=== PATIENT | female | born 1975 | race Caucasian/White ===

== ENCOUNTER 2017-07-16 13:24 | Inpatient (IN) | payer OTHER ==
[2017-07-16 15:40] LABS: ADD MAN DIFF? NO
[2017-07-16 15:43] LABS: BASOPHILS % 0.3 % (0.0-2.0); EOSINOPHILS # 0.1 10^3/ul (0.0-0.5); EOSINOPHILS % 0.6 % (0.0-7.0); HEMOGLOBIN 10.8 g/dl (12.0-16.0); LYMPHOCYTES # 2.6 10^3/ul (0.8-2.9); LYMPHOCYTES % 25.2 % (15.0-51.0); MEAN CORPUSCULAR HGB CONC 33.8 g/dl (32.0-37.0); MEAN PLATELET VOLUME 10.1 fl (7.4-10.4); MONOCYTE # 0.5 10^3/ul (0.3-0.9); MONOCYTES % 5.2 % (0.0-11.0); NEUTROPHILS % 68.1 % (39.0-77.0); PLATELET COUNT 286 10^3/UL (140-415); RED BLOOD COUNT 3.72 10^6/ul (4.20-5.40); RED CELL DISTRIBUTION WIDTH 12.8 % (11.5-14.5)
[2017-07-16 15:43] LABS: WHITE BLOOD COUNT 10.3 10^3/ul (4.8-10.8)
[2017-07-16 16:03] LABS: URIC ACID 3.6 mg/dl (3.1-7.9)
[2017-07-16 16:04] LABS: ALANINE AMINOTRANSFERASE 41 IU/L (13-69); ALBUMIN 3.8 g/dl (3.3-4.9); ALBUMIN/GLOBULIN RATIO 1.11; ALKALINE PHOSPHATASE 113 IU/L (42-121); ANION GAP 14 (8-16); ASPARTATE AMINO TRANSFERASE 33 IU/L (15-46); BILIRUBIN,INDIRECT 0.3 mg/dl (0-1.1); BILIRUBIN,TOTAL 0.3 mg/dl (0.2-1.3); BLOOD UREA NITROGEN 9 mg/dl (7-20); CALCIUM 8.6 mg/dl (8.4-10.2); CARBON DIOXIDE 22 mmol/L (21-31); CHLORIDE 105 mmol/L (97-110); CREATININE 0.37 mg/dl (0.44-1.00); GLUCOSE 82 mg/dl (70-220); INR 0.97; PARTIAL THROMBOPLASTIN TIME 29.1 Sec (25.0-35.0); POTASSIUM 3.7 mmol/L (3.5-5.1); SODIUM 137 mmol/L (135-144); TOTAL PROTEIN 7.2 g/dl (6.1-8.1)
[2017-07-16 16:40] LABS: ADD UMIC NO; UR AMORPHOUS CRYSTAL FEW /HPF (NONE SEEN); UR ASCORBIC ACID NEGATIVE (NEGATIVE); UR BILIRUBIN (Dip) NEGATIVE (NEGATIVE); UR BLOOD (Dip) NEGATIVE (NEGATIVE); UR CLARITY SLIGHTLY CLOUDY (CLEAR); UR COLOR STRAW (YELLOW); UR GLUCOSE (Dip) NEGATIVE (NEGATIVE); UR KETONES (Dip) NEGATIVE (NEGATIVE); UR LEUKOCYTE ESTERASE (Dip) NEGATIVE Leu/ul (NEGATIVE); UR NITRITE (Dip) NEGATIVE (NEGATIVE); UR RBC 1 /HPF (0-5); UR SPECIFIC GRAVITY (Dip) 1.005 (1.003-1.030); UR SQUAMOUS EPITHELIAL CELL FEW /HPF (FEW); UR TOTAL PROTEIN (Dip) NEGATIVE (NEGATIVE); UR UROBILINOGEN (Dip) NEGATIVE (NEGATIVE); UR WBC 2 /HPF (0-5)
[2017-07-16] MEDS: LABETALOL 100 MG TAB PO (20:55)
[2017-07-17] MEDS: PRENATAL VITAMIN PO (08:41)
[2017-07-17] MEDS: LABETALOL 100 MG TAB PO ×2 (08:42→21:05)
[2017-07-17] MEDS: BETAMET NA PHOS/AC(6 MG/ML) 5ML INJ IM (14:43)
[2017-07-17 19:08] LABS: COLLECTION PERIOD 24 hrs
[2017-07-17 19:37] LABS: CREATININE,URINE RANDOM 42.81 mg/dl (20-320)
[2017-07-17 19:39] LABS: 24HR URINE TOTAL PROTEIN 357.5 mg/24hrs (42.0-225.0); COLLECTION PERIOD 24 hrs; SCRET 0.37 mg/dl (0.44-1.00); VOLUME 2750 ml/24hrs; VOLUME 2750 mls
[2017-07-18] MEDS: PRENATAL VITAMIN PO (09:46)
[2017-07-18] MEDS: LABETALOL 100 MG TAB PO ×3 (09:48→22:19)
[2017-07-18] MEDS: BETAMET NA PHOS/AC(6 MG/ML) 5ML INJ IM (14:51)
[2017-07-19] MEDS: LABETALOL 100 MG TAB PO ×3 (06:03→21:21)
[2017-07-19] MEDS: PRENATAL VITAMIN PO (08:47)
[2017-07-20] MEDS: LABETALOL 100 MG TAB PO ×2 (05:29→13:40)
[2017-07-20] MEDS: PRENATAL VITAMIN PO (08:28)
[2017-07-20] MEDS ORDERED: LABETALOL 200 MG TAB PO (21:00)
[2017-07-20] MEDS: LABETALOL 200 MG TAB PO (21:02)
[2017-07-21] MEDS: LABETALOL 200 MG TAB PO ×2 (08:33→18:02)
[2017-07-21] MEDS: PRENATAL VITAMIN PO (08:33)
== END 2017-07-21 18:32 | disposition home or self-care (01) | DRG 781 ==
LOC: OBT 13:24 → L-D 13:25 → OBT 18:00 → PP1 18:00
PROVIDERS: Obstetrics & Gynecology
PROC: 4A0HXCZ Measurement of Products of Conception, Cardiac Rate, External Approach (ICD-10-PCS; principal; 2017-07-17)
DX: O10.013 Pre-existing essential hypertension complicating pregnancy, third trimester (principal); Z3A.31 31 weeks gestation of pregnancy
CPT/HCPCS: 76818; 80053; 81001; 81003; 82575; 84156; 84560; 85025; 85384; 85610; 85730

== ENCOUNTER 2017-08-20 23:03 | Inpatient (IN) | payer OTHER ==
[2017-08-21 00:49] LABS: ADD MAN DIFF? NO
[2017-08-21 00:52] LABS: WHITE BLOOD COUNT 9.1 10^3/ul (4.8-10.8)
[2017-08-21 00:52] LABS: BASOPHILS % 0.4 % (0.0-2.0); EOSINOPHILS # 0.1 10^3/ul (0.0-0.5); EOSINOPHILS % 0.7 % (0.0-7.0); HEMATOCRIT 30.5 % (37.0-47.0); HEMOGLOBIN 10.3 g/dl (12.0-16.0); LYMPHOCYTES % 32.9 % (15.0-51.0); MEAN CORPUSCULAR HEMOGLOBIN 28.9 pg (29.0-33.0); MEAN CORPUSCULAR HGB CONC 33.8 g/dl (32.0-37.0); MEAN CORPUSCULAR VOLUME 85.7 fl (82.0-101.0); MEAN PLATELET VOLUME 10.4 fl (7.4-10.4); MONOCYTE # 0.7 10^3/ul (0.3-0.9); MONOCYTES % 7.4 % (0.0-11.0); NEUTROPHIL # 5.3 10^3/ul (1.6-7.5); NEUTROPHILS % 57.9 % (39.0-77.0); PLATELET COUNT 241 10^3/UL (140-415); RED BLOOD COUNT 3.56 10^6/ul (4.20-5.40); RED CELL DISTRIBUTION WIDTH 13.2 % (11.5-14.5)
[2017-08-21 00:56] LABS: ADD UMIC NO; UR ASCORBIC ACID NEGATIVE (NEGATIVE); UR BILIRUBIN (Dip) NEGATIVE (NEGATIVE); UR BLOOD (Dip) NEGATIVE (NEGATIVE); UR CLARITY CLEAR (CLEAR); UR COLOR STRAW (YELLOW); UR GLUCOSE (Dip) NEGATIVE (NEGATIVE); UR KETONES (Dip) NEGATIVE (NEGATIVE); UR LEUKOCYTE ESTERASE (Dip) NEGATIVE Leu/ul (NEGATIVE); UR NITRITE (Dip) NEGATIVE (NEGATIVE); UR SPECIFIC GRAVITY (Dip) 1.004 (1.003-1.030); UR TOTAL PROTEIN (Dip) NEGATIVE (NEGATIVE); UR UROBILINOGEN (Dip) NEGATIVE (NEGATIVE)
[2017-08-21 01:15] LABS: ALANINE AMINOTRANSFERASE 31 IU/L (13-69); ALBUMIN 3.6 g/dl (3.3-4.9); ALBUMIN/GLOBULIN RATIO 1.09; ALKALINE PHOSPHATASE 142 IU/L (42-121); ANION GAP 10 (8-16); ASPARTATE AMINO TRANSFERASE 28 IU/L (15-46); BILIRUBIN,INDIRECT 0.3 mg/dl (0-1.1); BILIRUBIN,TOTAL 0.3 mg/dl (0.2-1.3); BLOOD UREA NITROGEN 10 mg/dl (7-20); CARBON DIOXIDE 22 mmol/L (21-31); CHLORIDE 108 mmol/L (97-110); CREATININE 0.46 mg/dl (0.44-1.00); GLUCOSE 94 mg/dl (70-220); SODIUM 136 mmol/L (135-144); TOTAL PROTEIN 6.9 g/dl (6.1-8.1); URIC ACID 3.9 mg/dl (3.1-7.9)
[2017-08-21 01:18] LABS: INR 0.94; PROTIME 12.7 Sec (11.9-14.9)
[2017-08-21 01:19] LABS: PARTIAL THROMBOPLASTIN TIME 29.2 Sec (25.0-35.0)
[2017-08-21] MEDS ORDERED: BETAMET NA PHOS/AC(6 MG/ML) 5ML INJ IM (01:30)
[2017-08-21] MEDS: LACTATED RINGER'S 1,000 ML IV ×3 (02:10→23:33)
[2017-08-21] MEDS: MAGNESIUM SULFATE 4 GM/100 ML 100 ML IV (02:22)
[2017-08-21] MEDS: MAGNESIUM SULFATE 20 GM/500 ML 500 ML IV ×4 (02:50→23:36)
[2017-08-21] MEDS ORDERED: LABETALOL HCL 20MG INJ IV (03:00)
[2017-08-21] MEDS: LABETALOL HCL 20MG INJ IV ×2 (03:11→18:07)
[2017-08-21 07:14] LABS: MAGNESIUM 4.2 mg/dl (1.7-2.5)
[2017-08-21] MEDS: PRENATAL VITAMIN PO (08:28)
[2017-08-21] MEDS: DOCUSATE SODIUM 100 MG CAP PO (08:28)
[2017-08-21] MEDS: LABETALOL 100 MG TAB PO (08:33)
[2017-08-21 12:49] LABS: MAGNESIUM 5.4 mg/dl (1.7-2.5)
[2017-08-21 18:53] LABS: HEPATITIS B SURFACE ANTIGEN NEGATIVE (NEGATIVE)
[2017-08-21 19:08] LABS: MAGNESIUM 5.5 mg/dl (1.7-2.5)
[2017-08-21] MEDS ORDERED: LABETALOL 200 MG TAB PO (21:00)
[2017-08-21] MEDS: LABETALOL 200 MG TAB PO ×2 (21:27→22:00)
[2017-08-22] MEDS: AMPICILLIN 2 GM/NS (PMX) 100 ML IVPB (00:32)
[2017-08-22] MEDS: LACTATED RINGER'S 1,000 ML IV ×3 (00:37→19:23)
[2017-08-22] MEDS ORDERED: LACTATED RINGER'S 1,000 ML IV (00:37)
[2017-08-22] MEDS ORDERED: LIDOCAINE 1% (MPF) 30 ML INJ INJ (01:00)
[2017-08-22] MEDS ORDERED: CARBOPROST 250 MCG INJ IM ×2 (01:00→17:00)
[2017-08-22] MEDS ORDERED: METHYLERGONOVINE 0.2 MG INJ IM ×2 (01:00→17:00)
[2017-08-22] MEDS ORDERED: IBUPROFEN 600 MG TAB PO (01:00)
[2017-08-22] MEDS ORDERED: MISOPROSTOL 200 MCG TAB PR ×2 (01:00→17:00)
[2017-08-22] MEDS ORDERED: OXYTOCIN 30 UNITS/LR 500 ML IV ×2 (01:00→17:00)
[2017-08-22] MEDS: ONDANSETRON 4 MG INJ IV (01:32)
[2017-08-22] MEDS: ACETAMINOPHEN 325 MG TAB PO ×2 (01:32→06:19)
[2017-08-22 01:45] LABS: MAGNESIUM 5.8 mg/dl (1.7-2.5)
[2017-08-22] MEDS: AMPICILLIN 1 GM/NS (PMX) 50 ML IVPB ×3 (04:39→12:24)
[2017-08-22] MEDS: LABETALOL 200 MG TAB PO ×2 (06:02→14:28)
[2017-08-22 07:20] LABS: MAGNESIUM 6.1 mg/dl (1.7-2.5)
[2017-08-22] MEDS: OXYTOCIN 30 UNITS/LR 500 ML IV ×3 (08:43→13:31)
[2017-08-22] MEDS: MINERAL OIL LIGHT 10 ML VIAL TOP (09:00)
[2017-08-22] MEDS: DOCUSATE SODIUM 100 MG CAP PO (09:23)
[2017-08-22] MEDS: PRENATAL VITAMIN PO (09:23)
[2017-08-22] MEDS: MAGNESIUM SULFATE 20 GM/500 ML 500 ML IV ×2 (10:31→19:29)
[2017-08-22] MEDS ORDERED: FENTAnyl 2MCG/ML-ROPIV 0.2% 100 ML (12:03)
[2017-08-22] MEDS ORDERED: DIPHENHYDRAMINE 50 MG INJ IV (12:30)
[2017-08-22] MEDS ORDERED: HYDROmorphONE 0.5 MG/0.5 ML SYG IV ×2 (12:30)
[2017-08-22] MEDS ORDERED: ONDANSETRON 4 MG INJ IV (12:30)
[2017-08-22] MEDS ORDERED: KETOROLAC 30 MG INJ IV (12:30)
[2017-08-22] MEDS ORDERED: NALOXONE (0.4 MG/ML) INJ IV (12:30)
[2017-08-22] MEDS ORDERED: FENTAnyl 2MCG/ML-ROPIV 0.2% 100 ML BAG EPI (12:30)
[2017-08-22] MEDS ORDERED: ZOLPIDEM 5 MG TAB PO ×2 (12:30→17:00)
[2017-08-22 13:07] LABS: MAGNESIUM 5.9 mg/dl (1.7-2.5)
[2017-08-22 15:30] LABS: RAPID PLASMA REAGIN NONREACTIVE (NR)
[2017-08-22] MEDS ORDERED: OXYCODONE/ASPIRIN (4.88/325) TAB PO ×2 (17:00)
[2017-08-22] MEDS: LANOLIN 7 GM TUBE TOP (17:53)
[2017-08-22] MEDS: BENZOCAINE 20% 56 ML SPRAY TOP (17:53)
[2017-08-22] MEDS: WITCH HAZEL/GLYCERIN PAD PR (17:53)
[2017-08-22] MEDS: IBUPROFEN 600 MG TAB PO ×2 (17:53→23:39)
[2017-08-22 18:39] LABS: MAGNESIUM 5.7 mg/dl (1.7-2.5)
[2017-08-22] MEDS: SENNA/DOCUSATE NA (8.6MG/50MG) TAB PO (21:39)
[2017-08-23 01:31] LABS: MAGNESIUM 6.1 mg/dl (1.7-2.5)
[2017-08-23] MEDS: LABETALOL 200 MG TAB PO ×3 (02:40→21:50)
[2017-08-23] MEDS: MAGNESIUM SULFATE 20 GM/500 ML 500 ML IV (04:44)
[2017-08-23] MEDS: LACTATED RINGER'S 1,000 ML IV ×2 (05:21→07:37)
[2017-08-23] MEDS: IBUPROFEN 600 MG TAB PO ×3 (06:51→17:34)
[2017-08-23 07:03] LABS: ADD MAN DIFF? NO
[2017-08-23 07:17] LABS: WHITE BLOOD COUNT 9.8 10^3/ul (4.8-10.8)
[2017-08-23 07:17] LABS: BASOPHILS % 0.4 % (0.0-2.0); EOSINOPHILS % 0.3 % (0.0-7.0); HEMATOCRIT 29.8 % (37.0-47.0); HEMOGLOBIN 10.1 g/dl (12.0-16.0); LYMPHOCYTES # 2.7 10^3/ul (0.8-2.9); LYMPHOCYTES % 27.2 % (15.0-51.0); MEAN CORPUSCULAR HGB CONC 33.9 g/dl (32.0-37.0); MEAN CORPUSCULAR VOLUME 85.6 fl (82.0-101.0); MEAN PLATELET VOLUME 10.4 fl (7.4-10.4); MONOCYTE # 0.6 10^3/ul (0.3-0.9); MONOCYTES % 5.7 % (0.0-11.0); NEUTROPHIL # 6.4 10^3/ul (1.6-7.5); PLATELET COUNT 264 10^3/UL (140-415); RED BLOOD COUNT 3.48 10^6/ul (4.20-5.40); RED CELL DISTRIBUTION WIDTH 13.7 % (11.5-14.5)
[2017-08-23 07:35] LABS: MAGNESIUM 6.2 mg/dl (1.7-2.5)
[2017-08-23] MEDS: SENNA/DOCUSATE NA (8.6MG/50MG) TAB PO ×2 (09:23→21:50)
[2017-08-24] MEDS: IBUPROFEN 600 MG TAB PO ×3 (00:44→11:17)
[2017-08-24] MEDS: LABETALOL 200 MG TAB PO (08:51)
[2017-08-24] MEDS: SENNA/DOCUSATE NA (8.6MG/50MG) TAB PO (09:00)
[2017-08-24] MEDS: DIPHTH/TET/ACEL PERTUSS (ADULT) 0.5 ML VIAL IM* (13:21)
== END 2017-08-24 16:05 | disposition home or self-care (01) | DRG 775 ==
LOC: OBT 23:03 → L-D 08-22 00:09 → PP1 08-21 15:37 → L-D 08-22 11:10 → PP1 08-21 15:40
PROC: 10E0XZZ Delivery of Products of Conception, External Approach (ICD-10-PCS; principal; 2017-08-22)
PROC: 3E033VJ Introduction of Other Hormone into Peripheral Vein, Percutaneous Approach (ICD-10-PCS; 2017-08-22)
DX: O60.14X0 Preterm labor third trimester with preterm delivery third trimester, not applicable or unspecified (principal); O69.81X0 Labor and delivery complicated by cord around neck, without compression, not applicable or unspecified; O16.4 Unspecified maternal hypertension, complicating childbirth; O14.94 Unspecified pre-eclampsia, complicating childbirth; Z3A.36 36 weeks gestation of pregnancy; Z37.0 Single live birth
CPT/HCPCS: 36415; 62319; 76815; 80053; 81003; 83735; 84560; 85025; 85384; 85610; 85730; 86592; 86850; 86900; 86901; 87340; 90715; 99464